=== PATIENT | female | born 1995 | race Caucasian/White ===

== ENCOUNTER 2020-10-19 07:40 | Inpatient (IN) ==
[2020-10-19] MEDS ORDERED: OXYTOCIN 30 UNITS/500 ML BAG IV PRN ×3 (07:56→21:23)
--- NOTE | 2020-10-19 08:18 | History & Physical Report ---
Date of Service October 19, 2020 Assessment & Plan (1) Encounter for induction of labor: 25 yo mother with no maternal history, GBS- presents at 37 weeks GA with VIANCA 11/09 by LMP for IOL for IUGR and elevated dopplers by US. Serology negative, blood type O+. Vital signs stable. Category 1 tracing. Will start Pitocin with eventual AROM; Calloway bulb placed by Dr. Snow this AM. Labor plan includes epidural. Admission and Anticipated Discharge Date Admission Date: October 19, 2020 History of Present Illness Chief Complaint: induction of labor Primary Care Provider: Calvin Uriostegui 25 yo female presents at 37 weeks for induction of labor for IUGR and eleva patricia dopplers on US. EFW 3%ile at 20 weeks; EFW 13%ile at [facility] appointment 06/2020. Has been undergoing twice weekly NST/DVP. Noted to have elevated dopplers >95% at 10/01 visit, and induction was scheduled. Endorses movement. Denies loss of fluid or contractions. Allergies Allergy/AdvReac Type Severity Reaction Status Date / Time ANTIHISTAMINES Allergy Severe THROAT Uncoded 08/24/20 15:44 SWELLS, HEAVY CHEST, HIVES Home Medications Medication Instructions Recorded Confirmed Type vit no.[id number] 1 tab PO DAILY 10/19/20 10/19/20 History [ Vitamin] Patient History Medical History No pertinent past medical history Surgical History No history of previous surgery Family History Other No pertinent family history in first degree relatives Social History Smoking Status: Current every day smoker Cigarettes Per Day: 1; Do You Dip or Chew Tobacco: No; Hx Alcohol Use: No Hx Substance Use: No Preferred Language: Albanian Communication Ability: Effective Beliefs That Will Affect Care: None marital status: Single Current Living Situation: Significant Other Current Living Situation Comment: lives with friend, 2 cats, friend changes litter. current occupational status: unemployed Other Information That Helps Us Care for You: No Feels Safe at Home: Yes Safety Concerns: Feels Safe At This Time Review of Systems Constitutional: denies fever, chills, sweats, headache Respiratory: denies SOB, difficulty breathing Cardiac: denies CP, chest palpitations, chest pressure Breast: denies breast pain : denies dysuria Physical Exam Physical Exam: General: patient is alert and oriented, in NAD Cardiac: +S1/S2, no murmurs rubs or gallops Respiratory: lungs CTA b/l, anteriorly and posteriorly, no wheezes rales or rhonchi, no increased work of breathing, symmetric chest rise, no respiratory distress Abdomen: Gravid, + FHTs, baby is presenting vertex, no palpable contractions, EFW 5-6lbs Uterus: uterine fundus firm Lower Extremities: no LE edema or swelling, no deep calf pain, Yasmin's sign negative b/l Genitourinary: Manual OB Exam: + cervical dilation fingertip, + cervical effacement 50% and + station -2 OB Exam Monitor Tracing: + external FHT monitor used, + external uterine monitor used, + category I and + normal FHT variability Results & Data ([facility]) Vital Signs (Past 12 Hours) Vital Signs Pulse Resp BP 10/19/20 07:51 20 10/19/20 07:48 93 H 138/64 Code Status & VTE Plan VTE Prophylaxis Plan VTE Prophylaxis will be ordered: Yes Monitoring External Monitor HR 120-150 Tocodynamometer No contractions Supervising Physician Co-Signing Physician Notes Resident Physician Supervision Note: I was present with Dr. Estrada during the history and exam. I discussed the case with the resident and agree with the findings and plan as documented in the note. Any exceptions or clarifications are listed here: Patient is a 25yowf with iugr documented at 20 weeks. Had been following with IUGR protocol. Patient had us on 10/01 showing UAD in >95%. Growth on 10/12 at 36 weeks showed all parameters in the <2%, nl uad, nl fluid. UAD on 10/15 was normal. Recommendations from MFM were if UAD elevated or Growth less than 2% at 36 weeks to deliver at 37 weeks. ERgo, she presents for induction today. Patient was supposed to be seen in the office yesterday but did not have transportation and could not come. Notes good fm and no labor sx today. cx--ft/50/-2, mid, mod calloway bulb placed under direct visualization, filled with 30cc sterile water toco--horacio efm--130s wtih mod variability, accels to 150s no decels Plan calloway /pit indution. Fetus category one. GBS negative. Desires epidural. arom as appropriate. efw 5-6. Anticipate . Documented By: Zahra Snow MD, FACOG Resident Activity Tracking Resident Involvement: Resident Care Provided Care Provided: OB Delivery
[2020-10-19 08:19] LABS: Hematocrit (blood only) 32.1 % (37-47); Hemoglobin 10.7 g/dL (12.0-16.0); Mean Corpuscular Hemoglobin 31.8 pg (25-34); Mean Corpuscular Hgb Conc 33.3 g/dL (32-36); Mean Corpuscular Volume 95.3 fL (80-100); Mean Platelet Volume 11.1 fL (7.4-10.4); Platelet Count 213 K/uL (130-400); RDW Coefficient of Variation 13.6 % (11.5-14.5); Red Blood Count 3.37 M/uL (4.2-5.4); White Blood Count 10.27 K/uL (4.8-10.8)
[2020-10-19] MEDS: LACTATED RINGER'S 1,000 ML IV PRN ×3 (08:54→16:36)
[2020-10-19] MEDS ORDERED: ACETAMINOPHEN 325 MG TAB PO ONE (13:26)
[2020-10-19] MEDS ORDERED: BUPIVACAINE 0.25% 30 ML VIAL ONE ×2 (15:21→20:46)
[2020-10-19] MEDS ORDERED: SODIUM CHLORIDE 0.9% INJ 10 ML VIAL ONE ×2 (15:21→20:46)
[2020-10-19] MEDS ORDERED: fentaNYL citrate 100 MCG/2 ML VIAL ONE ×2 (15:21→20:46)
[2020-10-19] MEDS ORDERED: ePHEDrine sulfate 50 MG/ML AMP ONE (15:21)
[2020-10-19] MEDS ORDERED: fentaNYL 2MCG/ML ROPIVACAINE 1.25MG/ML 100 ML BAG EPI ONE (15:22)
--- NOTE | 2020-10-19 15:40 | Labor Progress Brief Note ---
Date of Service October 19, 2020 Subjective noting some contractions, elli has fallen out Assessment & Plan (1) Encounter for induction of labor: (2) Intrauterine growth restriction, antepartum: Admission and Anticipated Discharge Date Admission Date: October 19, 2020 Will get epidural then plan arom. Fetus category one. Anticipate . Physical Exam Constitutional: WD/WN, vitals as above Psychiatric: A+Ox3, euthymic affect Genitourinary: cx--3/75/-2 toco--q 2 min, pit at 16 efm--120s with mod variability, accels to 150s, no decels Results & Data ([facility]) Vital Signs (Past 12 Hours) Vital Signs Temp Pulse Resp BP 10/19/20 15:03 75 129/71 10/19/20 15:00 20 10/19/20 14:30 20 10/19/20 14:03 55 L 122/55 L 10/19/20 14:00 18 10/19/20 13:30 20 10/19/20 13:22 64 134/61 10/19/20 13:00 20 10/19/20 12:30 18 10/19/20 12:00 36.8 C 20 10/19/20 11:59 75 114/55 L 10/19/20 11:30 18 10/19/20 11:02 81 119/72 10/19/20 11:00 20 10/19/20 10:30 18 10/19/20 10:00 72 20 115/61 10/19/20 09:04 68 103/50 L 10/19/20 09:00 20 10/19/20 07:51 20 10/19/20 07:48 93 H 138/64 Coding Level of Care Code None Diagnoses Encounter for induction of labor Z34.90 Intrauterine growth restriction, antepartum O36.5990
--- NOTE | 2020-10-19 15:58 | Anesthesiology Consultation ---
Date of Service October 19, 2020 Assessment & Plan Chart Review Chart Review: Acceptable Risk for Surgery, Patient NOT seen in Pre Admission Testing and Acceptable Risk for Labor Epidural Consults Requested none ASA ASA3 Proposed Anesthesia Anesthesia Type: Labor Epidural and CSE History Height/Weight Height: 5 ft 2 in Weight: 105.687 kg Allergies Allergy/AdvReac Type Severity Reaction Status Date / Time diphenhydramine Allergy Severe Anaphylaxis, Verified 10/19/20 12:40 throat swelling, chest heaviness, hives Medications Home Medications Medication Instructions Recorded Confirmed Last Taken vit no.[id number] 1 tab PO DAILY 10/19/20 10/19/20 10/18/20 [ Vitamin] Active Medications Generic Name Dose Route Start Last Admin Trade Name Freq PRN Reason Stop Dose Admin Oxytocin 30 units in 500 mls @ 16 mls/hr 10/19/20 07:56 10/19/20 14:00 Pitocin IV 10/21/20 07:55 0.96 units/hr .Q24H PRN 16 mls/hr Labor Induction/Augmentation Titration Protocol 0.96 UNITS/HR Lactated Ringer's 1,000 mls @ 125 mls/hr 10/19/20 07:56 10/19/20 15:35 Lr IV 10/21/20 07:55 999 mls/hr .Q8H PRN Administration L&D Protocol Protocol Past Medical History Medical History No pertinent past medical history Exercise / Class Metabolic Activity II 4-5 Yardwork/Stairs/Walk up hill Past Family History Family History Other No pertinent family history in first degree relatives Past Surgical History Surgical History No history of previous surgery Past Anesthesia History No Hx of Anesthesia Complications and No Family Hx of Anesthesia Complications History of PONV No Hx of PONV and No Hx of Motion Sickness Social History Smoking Status: Current every day smoker tobacco type: cigarettes Smoking cigarettes per day: 1 Do You Dip or Chew Tobacco: No Hx Alcohol Use: No Hx Substance Use: No substance use type: does not use Physical Exam Vital Signs Last Vital Signs Temp 36.8 C 10/19/20 12:00 Pulse 75 10/19/20 15:03 Resp 20 10/19/20 15:00 BP 129/71 10/19/20 15:03 Testing Laboratory Results 10/19/20 08:06
[2020-10-19] MEDS ORDERED: PROMETHAZINE HCL 25 MG in SODIUM CHLORIDE 0.9% 50 ML IV PRN (16:28)
[2020-10-19] MEDS ORDERED: fentaNYL 2MCG/ML ROPIVACAINE 1.25MG/ML 100 ML BAG EPI PRN (16:28)
[2020-10-19] MEDS ORDERED: ONDANSETRON INJ 2 MG/ML 2 ML VIAL IV PRN (16:28)
[2020-10-19] MEDS ORDERED: ePHEDrine sulfate 50 MG/ML AMP IV PRN (16:28)
[2020-10-19] MEDS ORDERED: NALOXONE HCL 1 MG in SODIUM CHLORIDE 0.9% 1000ML 1,000 ML IV PRN (16:28)
[2020-10-19] MEDS ORDERED: NALOXONE HCL 0.4 MG/1 ML VIAL/CARP IV PRN (16:28)
--- NOTE | 2020-10-19 18:11 | Labor Progress Brief Note ---
Date of Service October 19, 2020 Subjective comfortable with epidural Assessment & Plan (1) Intrauterine growth restriction, antepartum: Admission and Anticipated Discharge Date Admission Date: October 19, 2020 arom done, continue current management. Fetus overall reassuring. Anticipate . Physical Exam Constitutional: WD/WN, vitals as above Psychiatric: A+Ox3, euthymic affect Genitourinary: cx--4/75/-1 arom--clear toco--2-5 min efm--120s with mod variability, small accels, rare small variable. Results & Data ([facility]) Vital Signs (Past 12 Hours) Vital Signs Temp Pulse Resp BP Pulse Ox 10/19/20 18:05 60 117/61 98 10/19/20 18:00 59 L 108/61 98 10/19/20 17:55 64 98 10/19/20 17:54 59 L 116/68 10/19/20 17:50 60 123/64 98 10/19/20 17:45 63 98 10/19/20 17:44 58 L 118/64 10/19/20 17:40 62 97 10/19/20 17:39 57 L 116/65 10/19/20 17:35 67 97 10/19/20 17:34 55 L 121/64 10/19/20 17:30 67 20 97 10/19/20 17:29 61 118/68 10/19/20 17:25 60 97 10/19/20 17:24 59 L 121/68 10/19/20 17:20 65 97 10/19/20 17:19 57 L 123/67 10/19/20 17:15 60 98 10/19/20 17:14 65 122/66 10/19/20 17:10 60 117/62 99 10/19/20 17:05 74 98 10/19/20 17:00 61 98 10/19/20 16:59 77 113/61 10/19/20 16:57 57 L 112/58 L 10/19/20 16:55 58 L 111/56 L 98 10/19/20 16:53 59 L 112/57 L 10/19/20 16:52 84 108/67 10/19/20 16:50 75 97 10/19/20 16:49 67 103/54 L 10/19/20 16:47 70 105/51 L 10/19/20 16:45 70 103/51 L 97 10/19/20 16:43 67 114/58 L 10/19/20 16:42 84 100/50 L 10/19/20 16:40 73 99 10/19/20 16:39 76 101/49 L 10/19/20 16:37 75 108/53 L 10/19/20 16:35 71 117/62 99 10/19/20 16:34 82 119/63 10/19/20 16:33 81 123/65 10/19/20 16:31 85 122/66 10/19/20 16:30 84 98 10/19/20 16:29 81 124/64 10/19/20 16:27 69 120/67 10/19/20 16:25 36.8 C 66 20 120/67 97 10/19/20 16:20 63 116/81 99 10/19/20 16:15 78 99 10/19/20 16:10 86 99 10/19/20 16:05 61 100 10/19/20 16:00 68 135/83 92 10/19/20 15:56 22 10/19/20 15:30 20 10/19/20 15:03 75 129/71 10/19/20 15:00 20 10/19/20 14:30 20 10/19/20 14:03 55 L 122/55 L 10/19/20 14:00 18 10/19/20 13:30 20 10/19/20 13:22 64 134/61 10/19/20 13:00 20 10/19/20 12:30 18 10/19/20 12:00 36.8 C 20 10/19/20 11:59 75 114/55 L 10/19/20 11:30 18 10/19/20 11:02 81 119/72 10/19/20 11:00 20 10/19/20 10:30 18 10/19/20 10:00 72 20 115/61 10/19/20 09:04 68 103/50 L 10/19/20 09:00 20 10/19/20 07:51 20 10/19/20 07:48 93 H 138/64 Coding Level of Care Code None Diagnoses Intrauterine growth restriction, antepartum O36.5990
--- NOTE | 2020-10-19 20:23 | Labor Progress Brief Note ---
Date of Service October 19, 2020 Subjective comfortable with epidural Assessment & Plan (1) Intrauterine growth restriction, antepartum: Admission and Anticipated Discharge Date Admission Date: October 19, 2020 continue pit at 18 as now making cervical change, position descending. Fetus category two but very reassuring. Anticipate . Physical Exam Constitutional: WD/WN, vitals as above Psychiatric: A+Ox3, euthymic affect Genitourinary: cx--6/100/0 toco--pit at 18, q 2-4min efm--120s with mod variability, rare variable, early with contractions Results & Data ([facility]) Vital Signs (Past 12 Hours) Vital Signs Temp Pulse Resp BP Pulse Ox 10/19/20 20:17 81 94 10/19/20 20:15 85 130/79 98 10/19/20 20:10 78 100 10/19/20 20:05 64 100 10/19/20 20:00 79 123/74 100 10/19/20 19:55 67 100 10/19/20 19:50 64 99 10/19/20 19:45 89 118/58 L 99 10/19/20 19:40 74 98 10/19/20 19:35 68 98 10/19/20 19:30 62 122/58 L 99 10/19/20 19:25 66 100 10/19/20 19:20 63 99 10/19/20 19:17 37.2 C 65 18 118/57 L 10/19/20 19:15 64 98 10/19/20 19:10 66 99 10/19/20 19:05 65 100 10/19/20 19:00 61 20 98/50 L 98 10/19/20 18:55 64 99 10/19/20 18:54 70 100/53 L 10/19/20 18:50 59 L 103/55 L 98 10/19/20 18:49 76 108/55 L 10/19/20 18:45 66 98 10/19/20 18:44 66 98/51 L 10/19/20 18:40 67 100/53 L 98 10/19/20 18:35 72 98 10/19/20 18:34 59 L 99/50 L 10/19/20 18:30 65 20 99 10/19/20 18:29 71 101/55 L 10/19/20 18:25 61 98/52 L 99 10/19/20 18:20 63 98 10/19/20 18:19 57 L 100/51 L 10/19/20 18:15 64 101/54 L 99 10/19/20 18:11 58 L 103/46 L 10/19/20 18:10 62 99 10/19/20 18:05 60 117/61 98 10/19/20 18:00 36.3 C L 59 L 18 108/61 98 10/19/20 17:55 64 98 10/19/20 17:54 59 L 116/68 10/19/20 17:50 60 123/64 98 10/19/20 17:45 63 98 10/19/20 17:44 58 L 118/64 10/19/20 17:40 62 97 10/19/20 17:39 57 L 116/65 10/19/20 17:35 67 97 10/19/20 17:34 55 L 121/64 10/19/20 17:30 67 20 97 10/19/20 17:29 61 118/68 10/19/20 17:25 60 97 10/19/20 17:24 59 L 121/68 10/19/20 17:20 65 97 10/19/20 17:19 57 L 123/67 10/19/20 17:15 60 98 10/19/20 17:14 65 122/66 10/19/20 17:10 60 117/62 99 10/19/20 17:05 74 98 10/19/20 17:00 61 98 10/19/20 16:59 77 113/61 10/19/20 16:57 57 L 112/58 L 10/19/20 16:55 58 L 111/56 L 98 10/19/20 16:53 59 L 112/57 L 10/19/20 16:52 84 108/67 10/19/20 16:50 75 97 10/19/20 16:49 67 103/54 L 10/19/20 16:47 70 105/51 L 10/19/20 16:45 70 103/51 L 97 10/19/20 16:43 67 114/58 L 10/19/20 16:42 84 100/50 L 10/19/20 16:40 73 99 10/19/20 16:39 76 101/49 L 10/19/20 16:37 75 108/53 L 10/19/20 16:35 71 117/62 99 10/19/20 16:34 82 119/63 10/19/20 16:33 81 123/65 10/19/20 16:31 85 122/66 10/19/20 16:30 84 98 10/19/20 16:29 81 124/64 10/19/20 16:27 69 120/67 10/19/20 16:25 36.8 C 66 20 120/67 97 10/19/20 16:20 63 116/81 99 10/19/20 16:15 78 99 10/19/20 16:10 86 99 10/19/20 16:05 61 100 10/19/20 16:00 68 135/83 92 10/19/20 15:56 22 10/19/20 15:30 20 10/19/20 15:03 75 129/71 10/19/20 15:00 20 10/19/20 14:30 20 10/19/20 14:03 55 L 122/55 L 10/19/20 14:00 18 10/19/20 13:30 20 10/19/20 13:22 64 134/61 10/19/20 13:00 20 10/19/20 12:30 18 10/19/20 12:00 36.8 C 20 10/19/20 11:59 75 114/55 L 10/19/20 11:30 18 10/19/20 11:02 81 119/72 10/19/20 11:00 20 10/19/20 10:30 18 10/19/20 10:00 72 20 115/61 10/19/20 09:04 68 103/50 L 10/19/20 09:00 20 Coding Level of Care Code None Diagnoses Intrauterine growth restriction, antepartum O36.5990
[2020-10-19] MEDS ORDERED: oxyCODONE/ACETAMINOPHEN 5mg/325mg TAB PO PRN (21:11)
--- NOTE | 2020-10-19 21:16 | Delivery Summary ---
Vaginal Delivery Summary Date of Service October 19, 2020 Pre-operative Diagnosis: at 37 weeks iugr--fetus in <2nd percentile elevated UAD unfavorable cervix Post-operative Diagnosis: same Procedure: calloway bulb placement pitocin induction epidural arom first degree laceration and repair EBL: 300cc Anesthesia: epidural Procedure: The patient pushed for two contractions to deliver a viable female infant in spenser position. The was then delivered without difficulty. The baby was vigorous. The was placed in the maternal abdomen for drying and attention where the nose and mouth were suctioned. Cord was clamped and cut at just after delivery as a short cord. Cord blood and segment for gases obtained. Placenta delivered spontaneous, intact with a three vessel cord, small. Cervix/sulci/rectum were intact. A first degree perineal laceration was repaired in the normal standard fashion. Hemostasis obtained with dilute pitocin and fundal massage. Apgars were 8/9. Mother and baby doing well at the end of the delivery. Vaginal Delivery Summary and 1st Degree [facility] Vaginal Delivery Charge Delivery Type Details: and 1st Degree L[facility]
[2020-10-19] MEDS ORDERED: HYDROCORTISONE ACETATE 25 MG SUPP PR PRN (21:23)
[2020-10-19] MEDS ORDERED: SUPERCREAM 0.870% 15 GM JAR EXT PRN (21:23)
[2020-10-19] MEDS ORDERED: BENZOCAINE 20% AER SPR 82.5 GM CAN EXT PRN (21:23)
[2020-10-19] MEDS ORDERED: DIPHTHERIA/TETANUS/PERTUSSIS 0.5 ML SYR/VIAL IM ONE (21:23)
[2020-10-19] MEDS ORDERED: bisacodyL 10 MG SUPP PR PRN (21:23)
[2020-10-19 21:31] LABS: Base Excess Cord Arterial Bld -2.5 mEq/L (-9-1.8); CO2 Cord Arterial Blood 42 mmHg (39.1-73.5); HCO3 Cord Arterial Blood 23 mmol/L (19.7-28.5); PO2 Cord Arterial Blood 24 mmHg (4.1-31.7); pH Cord Arterial Blood 7.36 (7.1-7.38)
[2020-10-19 21:32] LABS: Base Excess Cord Venous Blood -2.7 mEq/L (-7.7-1.9); Cord Venous Blood HCO3 21 mmol/L (18.4-26.8); Cord Venous Blood PCO2 35 mmHg (30.4-57.2); Cord Venous Blood PO2 28 mmHg (14.1-43.3)
[2020-10-19 21:36] LABS: Oxygen Sat Cord Arterial Blood < 60.0 % (<60)
[2020-10-19] MEDS: IBUPROFEN 600 MG TAB PO PRN (22:53)
--- NOTE | 2020-10-19 22:53 | Anesthesia Procedure Note ---
Date of Service October 19, 2020 Anesthesia Post Epidural Note Vital Signs Vital Signs: Temp Pulse Resp BP Pulse Ox 37.1 C 88 18 131/69 98 10/19/20 20:26 10/19/20 22:50 10/19/20 22:15 10/19/20 22:50 10/19/20 21:06 Notes Mental Status: alert / awake / arousable Nausea / Vomiting: adequately controlled Pain: adequately controlled Airway Patency, RR, SpO2: stable & adequate BP & HR: stable & adequate Hydration State: stable & adequate Neuraxial Anesthesia: was administered and sensory block is resolving Anesthetic Complications: no major complications apparent Epidural: Removed without complications and With tip intact
[2020-10-20] MEDS: ACETAMINOPHEN 325 MG TAB PO PRN ×3 (01:54→20:36)
[2020-10-20] MEDS: IBUPROFEN 600 MG TAB PO PRN ×4 (03:47→16:35)
--- NOTE | 2020-10-20 06:06 | Obstetrical Progress Note ---
Date of Service <Nubia Estrada - Last Filed: 10/20/20 07:28> October 20, 2020 Assessment & Plan <Nubia Estrada - Last Filed: 10/20/20 07:28> (1) Encounter for care and examination after delivery: 25 yo PPD #1 following at 37 weeks, underwent IOL for IUGR. Feeling well this AM, has ambulated and voided . Bottle feeding, but desires to try ; will encourage attempts while in-house. Continue routine care. Anticipate discharge for mom tomorrow, possibly to nesting pending Pediatric interventions for . Subjective <Nubia Simpsonopal - Last Filed: 10/20/20 07:28> 25 yo female ; PPD # 1 following vaginal delivery at 37 weeks, induced for IUGR with elevated dopplers; doing well this AM; intermittent abdominal cramping/pain; voiding well; tolerating meals overnight, able to ambulate some within the room. Bottle feeding due to small size of , however would like to try as well. Does not have a pump in-house. Review of Systems Constitutional: denies fever, chills, sweats, headache Respiratory: denies SOB, difficulty breathing Cardiac: denies CP, chest palpitations, chest pressure Breast: denies breast pain : denies dysuria Physical Exam <Nubia Simpsonopal - Last Filed: 10/20/20 07:28> General: patient is alert and oriented, in NAD Cardiac: +S1/S2, no murmurs rubs or gallops Respiratory: lungs CTA b/l, anteriorly and posteriorly, no wheezes rales or rhonchi, no increased work of breathing, symmetric chest rise, no respiratory distress Abdomen: soft, NT, +bowel sounds Uterus: uterine fundus firm, small, below the umbilicus Lower Extremities: no LE edema or swelling, no deep calf pain, Yasmin's sign negative b/l Results & Data ([facility]) <Nubia Simpsonopal - Last Filed: 10/20/20 07:28> Vital Signs (Past 12 Hours) Vital Signs Temp Pulse Pulse Resp BP BP Pulse Ox 10/20/20 03:30 36.7 C 80 18 89/58 L 97 10/20/20 00:15 36.9 C 83 20 111/74 97 10/19/20 23:41 88 118/70 10/19/20 23:30 18 10/19/20 22:50 88 131/69 10/19/20 22:45 18 10/19/20 22:15 91 H 18 119/56 L 10/19/20 22:00 92 H 112/58 L 10/19/20 21:45 210 H 18 109/45 L 10/19/20 21:30 100 H 18 124/64 10/19/20 21:15 90 18 116/57 L 10/19/20 21:14 102 H 129/60 10/19/20 21:12 92 H 164/67 H 10/19/20 21:06 94 H 98 10/19/20 21:01 85 99 10/19/20 21:00 96 H 163/81 H 10/19/20 20:57 18 10/19/20 20:56 107 H 100 10/19/20 20:55 90 89 L 10/19/20 20:50 92 H 100 10/19/20 20:45 81 118/65 98 10/19/20 20:40 71 100 10/19/20 20:35 66 100 10/19/20 20:31 65 123/66 10/19/20 20:30 70 18 100 10/19/20 20:29 66 91 10/19/20 20:26 37.1 C 10/19/20 20:25 65 99 10/19/20 20:20 65 100 10/19/20 20:17 81 94 10/19/20 20:15 85 130/79 98 10/19/20 20:10 78 100 10/19/20 20:05 64 100 10/19/20 20:00 79 123/74 100 10/19/20 19:55 67 100 10/19/20 19:50 64 99 10/19/20 19:45 89 118/58 L 99 10/19/20 19:40 74 98 10/19/20 19:35 68 98 10/19/20 19:30 62 18 122/58 L 99 10/19/20 19:25 66 100 10/19/20 19:20 63 99 10/19/20 19:17 37.2 C 65 18 118/57 L 10/19/20 19:15 64 98 10/19/20 19:10 66 99 10/19/20 19:05 65 100 10/19/20 19:00 61 20 98/50 L 98 10/19/20 18:55 64 99 10/19/20 18:54 70 100/53 L 10/19/20 18:50 59 L 103/55 L 98 10/19/20 18:49 76 108/55 L 10/19/20 18:45 66 98 10/19/20 18:44 66 98/51 L 10/19/20 18:40 67 100/53 L 98 10/19/20 18:35 72 98 10/19/20 18:34 59 L 99/50 L 10/19/20 18:30 65 20 99 10/19/20 18:29 71 101/55 L 10/19/20 18:25 61 98/52 L 99 10/19/20 18:20 63 98 10/19/20 18:19 57 L 100/51 L 10/19/20 18:15 64 101/54 L 99 10/19/20 18:11 58 L 103/46 L 10/19/20 18:10 62 99 <Zahra Snow MD, FACOG - Last Filed: 10/20/20 07:36> Co-Signing Physician Notes Resident Physician Supervision Note: I interviewed and examined the patient. Discussed with Dr. Estrada and agree with findings and plan as documented in the note. Any exceptions or clarifications are listed here: Doing well. routine PP care. Documented By: Zahra Snow MD, FACOG Resident Activity Tracking <Nubia Estrada DO - Last Filed: 10/20/20 07:28> Resident Involvement: Resident Care Provided Care Provided: OB Delivery
[2020-10-20 07:01] LABS: Hematocrit (blood only) 27.6 % (37-47); Hemoglobin 9.3 g/dL (12.0-16.0)
[2020-10-20] MEDS: DOCUSATE SODIUM 100 MG CAP PO SCH ×2 (07:47→20:36)
[2020-10-20] MEDS: PRENATAL VITAMIN 1 TAB PO SCH (07:48)
[2020-10-20] MEDS ORDERED: bisacodyL 5 MG TABEC PO SCH (20:00)
[2020-10-21] MEDS: IBUPROFEN 600 MG TAB PO PRN ×2 (00:05→08:07)
--- NOTE | 2020-10-21 06:35 | Obstetrical Progress Note ---
Date of Service <Nubia Estrada DO - Last Filed: 10/21/20 07:37> October 21, 2020 Assessment & Plan <Nubia Estrada DO - Last Filed: 10/21/20 07:37> (1) Encounter for care and examination after delivery: 25 yo PPD #2 following at 37 weeks, underwent IOL for IUGR. Feeling well this AM, has ambulated and voided . Bottle feeding. Continue routine care until discharged, possibly to [facility] pending Pediatric clearance on . Subjective <Nubia Estrada DO - Last Filed: 10/21/20 07:37> 25 yo female ; PPD # 2 following vaginal delivery at 37 weeks, induced for IUGR with elevated dopplers; doing well this AM; intermittent abdominal cramping/pain; voiding well; tolerating meals overnight, able to ambulate some within the room. Bottle feeding predominantly due to SGA . Review of Systems Constitutional: denies fever, chills, sweats, headache Respiratory: denies SOB, difficulty breathing Cardiac: denies CP, chest palpitations, chest pressure Breast: denies breast pain : denies dysuria Physical Exam <Nubia Estrada DO - Last Filed: 10/21/20 07:37> General: patient is alert and oriented, in NAD Cardiac: +S1/S2, no murmurs rubs or gallops Respiratory: lungs CTA b/l, anteriorly and posteriorly, no wheezes rales or rhonchi, no increased work of breathing, symmetric chest rise, no respiratory distress Abdomen: soft, NT, +bowel sounds Uterus: uterine fundus firm, small, below the umbilicus Lower Extremities: no LE edema or swelling, no deep calf pain, Yasmin's sign negative b/l Results & Data ([facility]) <Nubia Estrada DO - Last Filed: 10/21/20 07:37> Vital Signs (Past 12 Hours) Vital Signs Temp Pulse Resp BP Pulse Ox 10/21/20 00:30 36.7 C 61 16 113/80 10/20/20 18:55 36.7 C 71 18 128/85 98 <Sarah Cates MD, FACOG - Last Filed: 10/21/20 08:02> Co-Signing Physician Notes Resident Physician Supervision Note: I was present with Dr. Estrada during the history and exam. I discussed the case with the resident and agree with the findings and plan as documented in the note. Any exceptions or clarifications are listed here: [None] Documented By: Sarah Cates MD, FACOG Resident Activity Tracking <Nubia Estrada, DO - Last Filed: 10/21/20 07:37> Resident Involvement: Resident Care Provided Care Provided: OB Delivery
[2020-10-21] MEDS: PRENATAL VITAMIN 1 TAB PO SCH (08:07)
[2020-10-21] MEDS: DOCUSATE SODIUM 100 MG CAP PO SCH (08:07)
== END 2020-10-21 13:34 | disposition home or self-care (01) | DRG 807 ==
LOC: 4S1 07:40 → 4S2 10-20 00:16